=== PATIENT | female | born 2000 | race Caucasian/White ===

== ENCOUNTER 2022-12-12 19:38 | Emergency (ER) | payer OTHER, SELFPAY ==
[2022-12-12 19:53] VITALS: BP 142/92; PULSE 83; RESP 18; TEMP 36.1; O2SAT 97; BMI 38.4
--- NOTE | 2022-12-12 22:05 | ED_ITS ---
HPI - Wound/Laceration General Chief Complaint: Wound/Laceration Stated Complaint: finger laceration Time Seen by Provider: 12/12/22 21:14 Source: patient Mode of arrival: ambulatory Limitations: no limitations History of Present Illness HPI narrative: Patient presented to emergency room complaining of laceration left thumb she cut herself white making [place], Onset (ago): hour(s) (2) Location: other (left thumb) Place: home Patient tetanus UTD: Yes Context: accidental Associated symptoms: pain Related Data Allergies Allergy/AdvReac Type Severity Reaction Status Date / Time No Known Allergies Allergy Verified 12/12/22 20:40 Review of Systems Constitutional: Constitutional: Reports no additional constitutional complaints Eyes: Eyes: Reports no additional eye complaints Gastrointestinal: Gastrointestinal: Reports no additional gastrointestinal complaints Neurologic: Reports system reviewed and no additional complaints, except as documented PMFSH [facility] Narrative: denies Social History Social History Advance Directives: No Advance Directives Information Provided: No Physical Exam Vital Signs: Vital Signs: Last Vital Signs Temp 97 F 12/12/22 19:53 Pulse 83 12/12/22 19:53 Resp 18 12/12/22 19:53 BP 142/92 H 12/12/22 19:53 Pulse Ox 97 12/12/22 19:53 O2 Del Method 12/12/22 19:53 BMI result Body Mass Index 38.4 Const: General: cooperative Nutritional Appearance: well nourished HEENT: Head: Yes normal to inspection General nose exam: Normal external nose present Face and sinus: Yes normal facial exam Mouth: Normal oral and palatal mucosa present Neck: Neck: Yes normal visual inspection Chest: Chest palpation & inspection: normal inspection of the chest Resp: Effort & Inspection: normal respiratory effort Cardio: Rate: regular rate GI: Inspection: Yes normal to inspection Extrem: Other: 2 cm lacreation tip of the left thumb,full ROM ,no deficit strenght nor sensation Medical Decision Making Medical Decision Making MDM Narrative: presented with laceration left thumb,no neuro deficit ,will d/c Differential Diagnosis Differential Diagnoses: The differential diagnosis associated with the presentation includes tendon rupture/siple lac/digital nerve lesion Independent Historian Clinical information obtained from an independent historian. History obtained from or confirmed by: Other (mother) Procedures Laceration left thumb: Site: hand (thumb) and other Side (If applicable): left Size (cm): 2 Description: linear Depth: simple, single layer Local Anesthetic: lidocaine 1% Amount of anesthesia used (mL): 1 Skin layer closed with: nylon Size (cm): 4-0 Number of sutures: 2 Discharge Plan Discharge Clinical Impression: Laceration, Laceration of left thumb Patient Disposition: Home, Self-Care Instructions: Finger Laceration (ED) Additional Instructions: stitches out in 7-10 days by PCP or ED or Urgent care Referrals: Physician,Unknown J [Primary Care Provider] - 1 week Interventions: ED Discharge Assessment Last Done: 12/12/22 22:14 Discharge Date/Time: 12/12/22 22:14
== END 2022-12-12 22:14 | disposition home or self-care (01) ==
PROVIDERS: Emergency Provider Emergency Medicine
DX: S61.012A Laceration without foreign body of left thumb without damage to nail, initial encounter (principal); W26.0XXA Contact with knife, initial encounter; Y93.G1 Activity, food preparation and clean up; Y92.030 Kitchen in apartment as the place of occurrence of the external cause; Y99.9 Unspecified external cause status
CPT/HCPCS: 12001; 99282; 99284

== ENCOUNTER 2025-04-10 13:26 | Emergency (ER) | payer OTHER, SELFPAY ==
--- NOTE | 2025-04-10 13:38 | ED_ITS ---
HPI - General Adult General Chief complaint: Overdose Stated complaint: Accidentally took too much zoloft Time Seen by Provider: 04/10/25 13:52 Source: patient Mode of arrival: ambulatory Limitations: no limitations History of Present Illness ED Provider: Walter Ronquillo DO HPI narrative: 24-year-old female with past medical history of OCD and anxiety on sertraline 150 mg daily presents to the ED due to concern for doubling her medications including sertraline and Claritin today. Patient states he accidentally discharge the doses at 13:00 today after she had a dose of each at 10:00 today. She denies any other home medications and is not prescribed any other serotonergic medications. She denies fevers, chest pain, abdominal pain, difficulty breathing, vomiting or tremors. She does report mild anxiety over her symptoms and called poison control and was encouraged to report to the ED for further evaluation. She does occasionally take low-dose marijuana gummies. She has no other symptoms today. She denies intent to harm herself and has no suicidal or homicidal ideations. Related Data Allergies Allergy/AdvReac Type Severity Reaction Status Date / Time No Known Allergies Allergy Verified 04/10/25 13:41 Review of Systems 2 Review of Systems: Yes all other systems are reviewed and are negative [facility] Social History Social History Alcohol intake: current Substance Use Type: Marijuana Physical Exam ED Vital Signs: Vital Signs - 24 hr 04/10/25 13:39 Temperature 97.9 F Pulse Rate 89 Respiratory Rate 16 Blood Pressure 142/78 H Pulse Oximetry 97 Oxygen Delivery Method Room Air BMI result Body Mass Index 43.4 Constitutional: ?Alert, oriented, speaking in full sentences, does not appear anxious, no tremors HEENT: ?Normocephalic, atraumatic. ?Moist mucous membranes Eyes: ?PERRL, EOMI, no mydriasis Neck: ?Supple, nontender Chest: ?No chest wall tenderness Respiratory: ?Lungs clear to auscultation, no increased work of breathing Cardio: ?Regular rate and rhythm, no murmur, 2+ radial and DP pulses symmetrically GI: ?Soft, nondistended, nontender Back: ?Normal range of motion, nontender Skin: ?No rash, no lesions Neuro: ?Alert and oriented to person, place and time, moves all 4 extremities, no focal deficits, no clonus Extremities: ?No swelling or tenderness, full range of motion Psych: ?Calm, alert and cooperative, appropriate behavior Course Course Course Narrative: RME performed by Jade Camara PA-C. Patient is a 24 year old assigned female at presenting to the emergency department after an accidental ingestion. Patient states that she accidentally took her daily medications twice for a total of 300mg of Zoloft and 20mg of claritin. Detailed physical exam and review of systems are deferred to the physician pediatrician. EKG and labs ordered. Patient placed back in the waiting room pending room availability and results. Medical Decision Making Medical Decision Making MDM Narrative: This is a well-appearing, pleasant and vitally stable female presenting with concerns after taking 300 mg of sertraline today. She has no other serotonergic agents prescribed and is not exhibiting any signs of serotonin syndrome whatsoever. ECG and lab work unremarkable. She was offered low-dose benzodiazepam for reports of anxiety but declined and states she feels much more reassured after discussion and exam. There is no indication to observe the patient given the low dose that she ingested and return precautions have been provided. Patient and mother at bedside agree with plan. Admission/Observation Consideration of admission/observation: Escalation of care including admission/observation considered Lab Data [facility] Lab Attestation statement: I reviewed the patient's lab results. 04/10/25 13:50 04/10/25 13:50 Independent Interpretation I performed an independent interpretation of an: EKG Interpretation: Normal sinus rhythm at 80 beats per minute, normal axis, unremarkable intervals, no diagnostic ST or T-wave abnormalities, no prior for comparison. Discharge Plan Discharge Clinical Impression: Drug overdose Qualifiers: Encounter type: initial encounter Injury intent: accidental or unintentional Q ualified Code(s): T50.901A - Poisoning by unspecified drugs, medicaments and biological substances, accidental (unintentional), initial encounter Patient Disposition: Home, Self-Care Instructions: Adult Overdose (ED) Additional Instructions: Your history, exam, vital signs and blood work are reassuring. You can continue your regularly prescribed sertraline tomorrow. Return with any new symptoms or concerns. Print Language: Slovenian
[2025-04-10 13:39] VITALS: BP 142/78; PULSE 89; RESP 16; TEMP 36.6; O2SAT 97; BMI 43.4
--- NOTE | 2025-04-10 13:40 | ECG_ITS ---
Test Reason : OD Blood Pressure : */* mmHG Vent. Rate : 80 BPM Atrial Rate : 80 BPM P-R Int : 154 ms QRS Dur : 86 ms QT Int : 336 ms P-R-T Axes : 48 -4 33 degrees QTcB Int : 387 ms Normal sinus rhythm with sinus arrhythmia Normal ECG No previous ECGs available Referred By: Jade Camara Electronically Signed By: BARRIE NOE
[2025-04-10 13:57] LABS: MANUAL DIFF FLAG NO
--- OUTSIDE RECORDS SUMMARY | 2025-04-10 13:58 | XMS_ITS | Encounter Summary ---
Author Organization [facility] Address [address] [place] [id number] Phone Care Team Providers Care Direct Mail Coordinator Name Role Phone Unavailable Primary Care Provider Unavailabl e Reason for Visit * Reason Comments Med Refill Encounter Details Date Type Department Care Team (Late st Contact Info) Description 02/06/2018 Refill [facility] [address] [place] [address] Micehlle Brenner MD [address] [place] [address] OCD (obsessive compulsive disorder) Social History Tobacco Use Types Packs/Day Years Used Date Smoking Tobacco: Never Smokeless Tobacco: Never Comments:Never smoker Comments Unknown Sex and Gender Information Value Date Recorded Sex Assigned at Female 12/17/2019 2:42 PM EST Legal Sex Female 5:01 PM EDT Gender Identity Female 12/17/2019 2:42 PM EST Sexual Orientation Straight 12/17/2019 2: 42 PM EST documented as of this encounter Plan of Treatment Not on file documented as of this encounter Visit Diagnoses Diagnosis OCD (obsessive compulsive disorder) Obsessive-compulsive disorders documented in this encounter
[2025-04-10 14:12] LABS: Basophils Percent Auto 0.3 % (0-2); Eosinophils Absolute Auto 0.1 X10*3/uL (0.0-0.4); Eosinophils Percent Auto 1.2 % (0-4); Hematocrit 42.9 % (37.0-47.0); Hemoglobin 14.5 g/dl (12.0-16.0); Imm Gran Abs Auto 0.04 X10*3/uL (0.00-0.03); Imm Gran Pct Auto 0.3 % (0.0-0.4); Lymphocytes Absolute Auto 2.7 X10*3/uL (1.2-4.9); Lymphocytes Percent Auto 22.6 % (20-40); Mean Corpuscular HGB Conc 33.8 g/dl (31.0-35.0); Mean Corpuscular Hemoglobin 29.3 pg (27.0-33.0); Mean Corpuscular Volume 86.7 fL (80.0-98.0); Mean Platelet Volume 9.5 fL (9.4-12.3); Monocytes Absolute Auto 1.1 X10*3/uL (0.1-1.2); Monocytes Percent Auto 9.1 % (2-11); Neutrophils Absolute Auto 7.8 x10*3/uL (2.0-8.3); Neutrophils Percent Auto 66.5 % (45-73); Platelet Count 362 X10*3/uL (160-400); Red Blood Count 4.95 X10*6/uL (4.20-5.50); Red Cell Distribution Width 12.6 % (11.0-16.0); White Blood Count 11.8 X10*3/uL (4.8-10.8)
[2025-04-10 14:20] LABS: Alanine Aminotransferase 33 U/L (0-31); Albumin Level 4.4 g/dL (3.5-5.0); Alkaline Phosphatase 72 U/L (39-117); Anion Gap 15 (12-20); Aspartate Amino Transferase 29 U/L (5-31); Bilirubin Total 0.3 mg/dL (0.0-1.0); Blood Urea Nitrogen 13 mg/dL (9-16); Calcium 9.8 mg/dL (8.4-10.2); Carbon Dioxide 20 mmol/L (22-29); Chloride 109 mmol/L (96-108); Estimated Glomerular Filt Rate > 60; Glucose Random 89 mg/dL (60-115); Potassium 4.2 mmol/L (3.3-5.1); Sodium 140 mmol/L (135-145); Total Protein 7.4 g/dL (6.5-8.0)
[2025-04-10 14:22] LABS: Troponin-I High Sensitivity < 2.7 ng/L (<3.5-17.0)
[2025-04-10 14:36] VITALS: BP 137/93; PULSE 92; RESP 18; TEMP 36.8; O2SAT 97
[2025-04-10 14:36] LABS: HCG Quantitative < 2 mIU/mL
[2025-04-10 14:39] VITALS: BP 137/93; PULSE 92; RESP 18; TEMP 36.8; O2SAT 97
== END 2025-04-10 14:41 | disposition home or self-care (01) ==
PROVIDERS: Physician Assistant Medical; Emergency Provider Emergency Medicine; PCP Nurse Practitioner Family
DX: T50.901A Poisoning by unspecified drugs, medicaments and biological substances, accidental (unintentional), initial encounter (principal); Y92.9 Unspecified place or not applicable; F41.9 Anxiety disorder, unspecified
CPT/HCPCS: 36415; 80053; 83735; 84484; 84702; 85025; 93005; 99283; 99285

== ENCOUNTER → 2025-04-10 13:40 | Outpatient (BNV) | payer OTHER, SELFPAY | PROVIDERS: Emergency Provider Emergency Medicine; PCP Nurse Practitioner Family; Visit Provider Internal Medicine | DX: T50.901A Poisoning by unspecified drugs, medicaments and biological substances, accidental (unintentional), initial encounter (principal) | CPT/HCPCS: 93010 ==